=== PATIENT | male | born 1970 | race American Indian/Alaskan Native ===

== ENCOUNTER 2016-11-01 16:31 | Emergency (ER) | payer OTHER ==
[2016-11-01] MEDS ORDERED: CATAPRES ONE (20:40)
[2016-11-01] MEDS: CATAPRES PO ONE (20:46)
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
[2016-11-01 22:38] VITALS: BP 160/82
[2016-11-01] MEDS: NORVASC PO ONE (22:53)
[2016-11-01] MEDS: HCTZ PO ONE (22:53)
== END 2016-11-02 00:05 | disposition home or self-care (01) ==
LOC: ED 16:31
DX: S39.012A Strain of muscle, fascia and tendon of lower back, initial encounter (principal); S16.1XXA Strain of muscle, fascia and tendon at neck level, initial encounter; I10 Essential (primary) hypertension; F17.200 Nicotine dependence, unspecified, uncomplicated; V49.59XA Passenger injured in collision with other motor vehicles in traffic accident, initial encounter; Y92.488 Other paved roadways as the place of occurrence of the external cause; Y93.89 Activity, other specified; Y99.8 Other external cause status
CPT/HCPCS: 99282